=== PATIENT | male | born 1960 | race Caucasian/White ===

== ENCOUNTER 2024-11-03 18:32 | Emergency (ER) | payer OTHER ==
[~2024-11-03] VITALS: Ht 175.3 cm; Wt 59.0 kg
[2024-11-03] MEDS ORDERED: ACETAMINOPHEN ES 500 MG TABLET ONE (19:35)
[2024-11-03] MEDS: ACETAMINOPHEN ES 500 MG TABLET PO ONE (19:45)
[2024-11-03 20:46] VITALS: BP 136/79; TEMP 99.1; O2SAT 98
== END 2024-11-03 20:46 | disposition home or self-care (01) ==
LOC: ER 18:35
DX: S13.4XXA Sprain of ligaments of cervical spine, initial encounter (principal); S70.01XA Contusion of right hip, initial encounter; S09.90XA Unspecified injury of head, initial encounter; I10 Essential (primary) hypertension; G89.29 Other chronic pain; E11.9 Type 2 diabetes mellitus without complications; W07.XXXA Fall from chair, initial encounter; Y93.89 Activity, other specified; Y92.89 Other specified places as the place of occurrence of the external cause; Y99.8 Other external cause status
CPT/HCPCS: 70450-TC; 72125-TC; 73502